=== PATIENT | male | born 1950 | race American Indian/Alaskan Native ===

== ENCOUNTER 2018-08-06 11:16 | Day surgery (SDC) | payer BC ==
[2018-08-06] MEDS ORDERED: Lidocaine 2% Jelly (Uro-Jet) ONE (14:49)
[2018-08-06] MEDS ORDERED: cefTRIAXone 1 gm 1 GM/100 ML BAG IVPB ONE (14:49)
[2018-08-06] MEDS ORDERED: Midazolam 2 MG/2 ML VIAL ONE (15:04)
[2018-08-06] MEDS ORDERED: Propofol 10 mg/ml Inj (20 ML) ONE (15:04)
[2018-08-06 16:23] VITALS: O2SAT 100
[2018-08-06 16:31] VITALS: BP 148/65; PULSE 62; RESP 18; TEMP 97
--- NOTE | 2018-08-09 01:54 | HP ---
REASON FOR ADMISSION: Elevated prostate-specific antigen. HISTORY OF PRESENT ILLNESS: This is a very pleasant gentleman. He has voiding dysfunction, decreased voiding stream, irritative and obstructive urinary complaints. No gross hematuria. Currently, mild hematuria. Elevated PSA. He is here today for prostate ultrasound and prostate ultrasound-guided biopsy. PAST MEDICAL AND SURGICAL HISTORY: As listed on the chart. No history of MS or CVA. REVIEW OF SYSTEMS: As above, noncontributory. No weight loss, chest pain, or shortness of breath. FAMILY HISTORY: prostate. SOCIAL HISTORY: Unremarkable. PHYSICAL EXAMINATION: GENERAL: He is well-developed, well-nourished male, in no apparent distress. VITAL SIGNS: Within normal limits. LUNGS: Clear. ABDOMEN: Overall soft. Nontender. No masses. GENITOURINARY: Normal male phallus without discharge. No testicular mass. RECTAL EXAM: A 30 g prostate, soft and smooth. LABORATORY DATA: See chart. PSA noted. DIAGNOSES: 1. Elevated prostate-specific antigen, voiding dysfunction. 2. Irritative and obstructive urinary complaints. ASSESSMENT AND PLAN: In summary, the plan is as follows: Very pleasant gentleman, he is 68 years old. The prostate-specific antigen is concerning. He also has voiding and irritative obstructive complaints. Urology plan as follows: We are going to plan for a prostate ultrasound. We are going to plan for ultrasound biopsy. We are going to provide antibiotic prophylaxis and then further plans, we will follow. Estevan Melendrez MD
--- NOTE | 2018-08-09 02:04 | OP ---
PROCEDURE DATE: 08/06/2018 PREOPERATIVE DIAGNOSES: Elevated prostate-specific antigen, voiding dysfunction, irritative and obstructive urinary complaints. POSTOPERATIVE DIAGNOSES: Elevated prostate-specific antigen, voiding dysfunction, irritative and obstructive urinary complaints. PROCEDURE: Ultrasound of the prostate and ultrasound-guided prostate biopsy. SPECIMENS OBTAINED: Prostate cores. COMPLICATIONS: There were no complications. ESTIMATED BLOOD LOSS: Less than 10 mL. FINDINGS: No specific hypoechoic lesion. Prostate, otherwise, measured a volume of about 40 mL. Otherwise, unremarkable. measurement. DESCRIPTION OF PROCEDURE: After obtaining informed consent, the patient was placed on the table. Routine monitors were placed. Time-out was called to confirm the patient positioning. Antibiotic prophylaxis have been used. The patient was placed in a decubitus position. We used the BK 7.5 MHz probe inserted via the rectum. We took pictures in the transverse and longitudinal views. The volumes are as listed on the chart or the computer. The procedure continues. We now did a random biopsy of left base, left mid, left apex, right base, right mid, right apex; and two from each area, medial lateral, medial lateral, and medial lateral; total of 12 cores were sent down. Post-biopsy rectal exam within normal limits. There is some blood release in the rectal area within normal limits. We applied a little pressure. The patient tolerated the procedure without complications. Estevan Melendrez MD
--- NOTE | 2018-08-11 08:38 | CARD ---
APPROVED REPORT Date of service: 08/06/2018 EKG Measurement Heart [id number] <Conclusion> Normal sinus rhythm with sinus arrhythmia Normal ECG
== END 2018-08-06 17:12 | disposition home or self-care (01) ==
LOC: C.SDS 11:16
PROVIDERS: ATTEND Urology
DX: R97.20 Elevated prostate specific antigen [PSA] (principal); R39.198 Other difficulties with micturition; N13.9 Obstructive and reflux uropathy, unspecified
CPT/HCPCS: 55700; 76942; 88305; 88342; 93005; J0696